=== PATIENT | female | born 1965 | race Caucasian/White ===

== ENCOUNTER 2020-07-31 23:23 | Observation (INO) ==
[2020-07-31 02:37] LABS: Hematocrit 43.7 % (35.3-44.9); Hemoglobin 13.9 g/dL (11.5-15.4); Mean Corpuscular HGB Conc 31.8 g/dL (31.6-35.5); Mean Corpuscular Hemoglobin 28.7 pg (28.0-33.3); Mean Corpuscular Volume 90.3 fL (83.0-100.0); Mean Platelet Volume 9.7 fL (9.4-12.4); Platelet Count 285 K/mcL (140-400); Red Blood Count 4.84 M/mcL (3.82-4.97); Red Cell Distribution Width 12.2 % (11.5-14.5)
[2020-07-31 02:42] LABS: Heparin anti-factor XA UFH 0.7 IU/mL (0.30-0.70); INR 1.1; Prothrombin Time 12.6 Seconds (9.4-12.1)
[2020-07-31 02:57] LABS: Activated Partial Thrombo Time 159.1 Seconds (26.0-36.0)
[2020-07-31 02:58] LABS: BUN/Creatinine Ratio 17 (6-26); Blood Urea Nitrogen 12 mg/dL (6-20); Calcium 9.5 mg/dL (8.6-10.3); Carbon Dioxide 29 mEq/L (23-29); Chloride 106 mEq/L (98-107); Chol/HDL Ratio 2.5 (0-4.9); Cholesterol 206 mg/dL (< 200); Glucose 93 mg/dL (70-105); HDL Cholesterol 82 mg/dL (40-59); LDL Cholesterol,Calculated 108 mg/dL (< 100); Osmolality,Calculated 293 (280-300); Potassium 3.6 mEq/L (3.5-5.1); Sodium 142 mEq/L (136-145); Triglycerides 80 mg/dL (< 150); eGFR For African Americans > 60 (> 60); eGFR For Non-African Americans > 60 (> 60)
[2020-07-31 03:03] LABS: Troponin I 4.28 ng/mL (< 0.04)
[2020-07-31] MEDS: Aspirin 81 MG TAB.CHEW PO SCH (11:42)
[2020-07-31] MEDS: *HR* Ticagrelor 90 MG TABLET PO SCH (20:45)
[~2020-07-31 23:23] MED LIST: *HR* FentaNYL (PF) 100 MCG/2 ML VIAL ONE; *HR* Heparin 10,000 UNIT/10 ML VIAL ONE; *HR* Heparin 5,000 UNIT/ML VIAL IVP PRN; *HR* Midazolam HCl 2 MG/2 ML VIAL ONE; *HR* Ticagrelor 90 MG TABLET ONE; 0.9 % Sodium Chloride 1,000 ML ONE; Heparin 1,000 UNITS/500 mL 500 ML ONE; Heparin 25,000UNIT/250ML 1/2NS 25,000 UNIT/250 ML IV.SOLN IVC SCH; ISOVUE-370 200 ML INFUS..BTL ONE; Naloxone 0.4 MG/ML INJ IVP PRN; Nitroglycerin 0.4 MG TAB.SUBL SL PRN; Nitroglycerin 1,000 MCG/10 ML VIAL IV ONE; Perflutren Lipid Microsphere 1.3 ML in 0.9 % Sodium Chloride 8.7 ML IVP PRN; Tirofiban 12.5 MG/250ML 12.5 MG/250 ML BAG IVC SCH; Tirofiban 12.5 MG/250ML 12.5 MG/250 ML BAG ONE
[2020-08-01 06:35] LABS: Basophils % 0.5 %; Eosinophils # 0.3 K/mcL (0.0-0.6); Hematocrit 44.3 % (35.3-44.9); Hemoglobin 14.5 g/dL (11.5-15.4); Immature Granulocytes % 0.3 % (0-4); Lymphocytes # 2.1 K/mcL (0.6-4.6); Lymphocytes % 25.6 %; Mean Corpuscular HGB Conc 32.7 g/dL (31.6-35.5); Mean Corpuscular Volume 91.7 fL (83.0-100.0); Mean Platelet Volume 10.1 fL (9.4-12.4); Monocytes # 0.6 K/mcL (0.0-1.3); Monocytes % 7.6 %; Platelet Count 282 K/mcL (140-400); Red Blood Count 4.83 M/mcL (3.82-4.97); Red Cell Distribution Width 12.2 % (11.5-14.5)
[2020-08-01 06:54] LABS: BUN/Creatinine Ratio 17 (6-26); Blood Urea Nitrogen 14 mg/dL (6-20); Calcium 9.5 mg/dL (8.6-10.3); Carbon Dioxide 28 mEq/L (23-29); Chloride 105 mEq/L (98-107); Glucose 90 mg/dL (70-105); Osmolality,Calculated 288 (280-300); Potassium 3.6 mEq/L (3.5-5.1); Sodium 139 mEq/L (136-145); eGFR For African Americans > 60 (> 60); eGFR For Non-African Americans > 60 (> 60)
[2020-08-01 07:19] VITALS: BP 130/79
[2020-08-01] MEDS: Aspirin 81 MG TAB.CHEW PO SCH (09:55)
[2020-08-01] MEDS: *HR* Ticagrelor 90 MG TABLET PO SCH (09:55)
== END 2020-08-01 11:16 | disposition home or self-care (01) ==
LOC: 2ANU
PROVIDERS: ADMIT Internal Medicine; ATTEND Internal Medicine